=== PATIENT | male | born 1955 | race Caucasian/White ===

== ENCOUNTER 2016-07-02 10:23 | Inpatient (IN) | payer OTHER ==
--- NOTE | ~2016-07-02 | PN ---
Unit #: [id number] #: [id number] Patient: SHARON CASTANEDA [id number] [facility] [address] [place] [address] [id number] MR#: [id number] NAME: SHARON CASTANEDA ROOM: 71 Age: 61 Sex: M Admission Date: 07/02/2016 : 1955 Attending Physician: Parmjit Conroy M.D. Admitting Physician: Parmjit Conroy M.D. Primary Care Physician: Generic Doctor Not In System [facility] PROGRESS NOTES DATE 07/06/2016 DISCUSSION Mr. Castaneda is a 62-year-old, white male who was seen today and chart was reviewed and case was discussed with the staff. He has been anxious, withdrawn though has not shown any agitation, irritability or behavioral problems and has been cooperative with treatment recommendations. He has been taking the medication and tolerating them fairly well with no reported side effects. MENTAL STATUS EXAM An elderly white male who was casually dressed with fair personal hygiene, appears to be in no acute distress or discomfort. He was awake and alert on interaction with intact orientation. His mood was anxious with congruent affect. His speech was slow and goal directed. He denies any suicidal or homicidal ideation. Also, denies any auditory or visual hallucinations. His insight and judgement remains slightly impaired. TREATMENT PLAN 1. We will continue him on his current treatment protocol. We will monitor his response and make further adjustments as needed. 2. We will continue to follow up. Dictated by... Richardson Nolan/chuy TD: 07/07/2016 21:05 JOB #: [id number] Unit #: [id number] #: [id number] Patient: SHARON CASTANEDA PROGRESS NOTES Page 1 of 1 X Parmjit Conroy MD X PROGRESS NOTE
--- NOTE | ~2016-07-02 | DS ---
Unit #: [id number] #: [id number] [facility]: [facility] [id number] [facility] [address] [place] [address] [id number] MR#: [id number] NAME: SHARON CASTANEDA ROOM: [facility] Age: 61 Sex: M Admission Date: 07/02/2016 : 1955 Discharge Date: 07/07/2016 Attending Physician: Parmjit Conroy M.D. Primary Care Physician: Generic Doctor Not In System DISCHARGE SUMMARY IDENTIFYING DATA Mr. Castaneda is a 61-year-old white male, who is a resident of [place], [place], and was self-referred to the hospital on a voluntary basis. DISCHARGE DIAGNOSES Psychiatric: Major depressive disorder, recurrent, moderate, without psychotic features; alcohol dependence, moderate and acute withdrawals; cocaine dependence, moderate; cannabis dependence, moderate. Medical: Chronic obstructive pulmonary disease, arrhythmias. Stressors: Moderate psychosocial stressors. HISTORY OF PRESENT ILLNESS Please see initial psychiatric evaluation for details. PAST PSYCHIATRIC HISTORY Please see initial psychiatric evaluation for details. PAST MEDICAL HISTORY Please see initial psychiatric evaluation for details. HOSPITAL COURSE The patient was admitted to the adult chemical dependency unit at [facility] jabari Kowalski and was oriented to the hospital environment. Routine p.r.n. medications were initiated, and he was started back on his home medications and medications were adjusted and he was closely monitored. He was taking the medications regularly and was tolerating them fairly well and was able to come out of the detox without any complications and was willing to continue treatment on an outpatient basis and as such, it was decided that he will be kept on his current medications and will be discharged home and will continue treatment on an outpatient basis. DISCHARGE MEDICATIONS Remeron 15 mg at bedtime for depression. DISCHARGE CONDITION Stable. PROGNOSIS Fair. Dictated by... Unit #: [id number] #: [id number] Patient: SHARON CASTANEDA Parmjit Conroy M.D. IAA/modl TD: 07/07/2016 06:46 JOB #: [id number] DISCHARGE SUMMARY Page 1 of 1 X Parmjit Conroy MD X DISCHARGE SUMMARY
--- NOTE | ~2016-07-02 | PN ---
Unit #: [id number] #: [id number] Patient: SHARON CASTANEDA [id number] [facility] [address] [place] [address] [id number] I MR#: [id number] NAME: SHARON CASTANEDA ROOM: 71 Age: 61 Sex: M Admission Date: 07/02/2016 : 1955 Attending Physician: Parmjit Conroy M.D. Admitting Physician: Parmjit Conroy M.D. Primary Care Physician: Generic Doctor Not In System [facility] PROGRESS NOTES DATE 07/05/2016 DISCUSSION Mr. Castaneda is a 61-year-old, white male with substance abuse and mood disorder who was seen today and chart was reviewed and case was discussed with the staff. He has been anxious, withdrawn and rather seclusive to himself. Meanwhile, he has been cooperative with treatment recommendations as he has taking medications and tolerating them fairly well with no reported side effects. MENTAL STATUS EXAM An elderly white male who was casually dressed with fair personal hygiene, appears to be in no acute distress or discomfort. He was awake and alert on interaction with intact orientation. His mood was anxious with congruent affect. His speech was slow and restricted in content. His thought process was disorganized with some looseness of associations. His insight and judgement remains significantly impaired. TREATMENT PLAN 1. We will continue him on his current medications and treatment protocol. We will monitor his response to the medication and make further adjustments as needed. 2. We will continue to follow up. Dictated by... Richardson Nolan/chuy TD: 07/06/2016 23:37 JOB #: [id number] Unit #: [id number] #: [id number] Patient: SHARON CASTANEDA PROGRESS NOTES Page 1 of 1 X Parmjit Conroy MD PROGRESS NOTE
--- NOTE | ~2016-07-02 | PN ---
Unit #: [id number] #: [id number] Patient: SHARON CASTANEDA [id number] [facility] [address] [place] [address] [id number] I MR#: [id number] NAME: SHARON CASTANEDA ROOM: 71 Age: 61 Sex: M Admission Date: 07/02/2016 : 1955 Attending Physician: Parmjit Conroy M.D. Admitting Physician: Parmjit Conroy M.D. Primary Care Physician: Manny Doctor Not In System [facility] PROGRESS NOTES DATE OF SERVICE 07/03/2016 DISCUSSION Mr. Castaneda is a 61-year-old white male with substance abuse and mood disorder who was seen today. Chart was reviewed and case was discussed with the staff. He has been anxious, withdrawn, unkempt, disheveled, and rather seclusive to himself. Meanwhile, he has been cooperative with the treatment recommendations and has been taking the medications and tolerating them fairly well with no reported side effects. MENTAL STATUS EXAMINATION Middle-aged white male who is casually dressed with fair personal hygiene, appears to be in no acute distress or discomfort. He was awake and alert on interaction with intact orientation. His mood is anxious with congruent affect. Speech is slow and goal-directed. He denies any suicidal or homicidal ideations. His insight and judgment remain slightly impaired. TREATMENT PLAN 1. We will continue him on his current medications and treatment protocol. We will monitor his response to the medications and make further adjustments as needed. 2. We will continue to follow up. Dictated by... Richardson Nolan/delfin TD: 07/04/2016 10:36 JOB #: [id number] Unit #: [id number] #: [id number] Patient: SHARON CASTANEDA PROGRESS NOTES Page 1 of 1 X Parmjit Conroy MD X PROGRESS NOTE
--- NOTE | ~2016-07-02 | PN ---
Unit #: [id number] #: [id number] Patient: SHARON CASTANEDA [id number] [facility] [address] [place] [address] [id number] I MR#: [id number] NAME: SHARON CASTANEDA ROOM: 71 Age: 61 Sex: M Admission Date: 07/02/2016 : 1955 Attending Physician: Parmjit Conroy M.D. Admitting Physician: Parmjit Conroy M.D. Primary Care Physician: Generic Doctor Not In System [facility] PROGRESS NOTES DATE 07/03/2016 DISCUSSION Mr. Castaneda is a 61-year-old white male who was seen today and chart was reviewed and case was discussed with the staff. He has been anxious, withdrawn, rather seclusive to himself. Meanwhile, he has been cooperative with treatment recommendations and has been taking medications and tolerating them fairly well with no reported side effects. MENTAL STATUS EXAMINATION An elderly white male who was casually dressed with fair personal hygiene and appears to be in no acute distress or discomfort. He was awake and alert on interaction with intact orientation. His mood was anxious with congruent affect. His speech is slow and goal-directed. He denies any suicidal or homicidal ideations and also denies any auditory or visual hallucinations. His insight and judgement remains slightly impaired. TREATMENT PLAN 1. Will continue him on his current medications and treatment protocol and will monitor his response to the medications and make further adjustments as needed. 2. Will continue to follow up. Dictated by... Richardson Nolan/sheri TD: 07/03/2016 15:47 JOB #: [id number] Unit #: [id number] #: [id number] Patient: SHARON CASTANEDA PROGRESS NOTES Page 1 of 1 X Parmjit Conroy MD PROGRESS NOTE
--- NOTE | ~2016-07-02 | PA ---
Unit #: [id number] #: [id number] Patient: SHARON CASTANEDA [id number] [facility] [address] [place] [address] [id number] I MR#: [id number] NAME: SHARON CASTANEDA ROOM: P171 Age: 61 Sex: M Admission Date: 07/02/2016 : 1955 Date of Assessment: 07/02/2016 Attending Physician: Parmjit Conroy M.D. Admitting Physician: Parmjit Conroy M.D. PSYCHIATRIC ASSESSMENT DATE OF SERVICE 07/02/2016. IDENTIFYING DATA Mr. Castaneda is a 61-year-old, , white male, who is a resident of [place], [place], was self-referred to the hospital on a voluntary basis and was dropped off by one of his friends. CHIEF COMPLAINT "I don't feel like I've a purpose." HISTORY OF PRESENT ILLNESS Mr. Castaneda is a 61-year-old white male with a history of mood disorder, who was brought to the hospital. Upon presentation, he reports increasing depression, and does not feel like "he has a purpose anymore." "I'm still grieving over mother, I was thinking of jumping from the bridge a few days ago, I've been on a 5-day drug and alcohol high and I got to the point of wanting to end my life. So, I don't think of what I have done, drinking alcohol about 12 pack tall cans daily and last use was Thursday, and I've been sitting at the [facility] for 12 hours to try to get into rehab in [place], [place] and they were full, so I returned, I chose this place to be near to my mom's grave site, I have smoked crack cocaine in 5 days, last use was Thursday, I'm smoking marijuana daily, one joint, last was on Thursday and no other drug use. I've been feeling suicidal all my life. I've been feeling really bad 5 days ago and I've attempted to cut my wrist, cut my arm, my skin off my fingers to the bones and stem mounter knife. I have burned myself, my last a couple of years ago and currently I'm thinking of overdosing on crack and I've access to it. I'm currently feeling suicidal today and currently he was unable to contract for safety and as such, recommendation for inpatient level of care for safety and stabilization and medical detox was made. SUBSTANCE ABUSE HISTORY The patient reports extensive history of substance abuse and dependence including alcohol, cannabis, cocaine, acid, amphetamines, and it appears that currently alcohol and cocaine and cannabis have been his drug of choice. PAST PSYCHIATRIC HISTORY The patient has had history of multiple inpatient chemical dependency psychiatric treatment in the past and currently is not active in any treatment program, is not seeing a psychiatrist, and is not taking any psychotropic medications. Unit #: [id number] #: [id number] Patient: SHARON CASTANEDA PAST MEDICAL HISTORY Arrhythmia, COPD. ALLERGIES Codeine. PERSONAL AND SOCIAL HISTORY A 61-year-old white male, who reports that he is single, unemployed, and essentially homeless and has poor social support system. MENTAL STATUS EXAMINATION An elderly white male, who was casually dressed with marginal personal hygiene, appears to be in no acute distress or discomfort. He was awake and alert on interaction with intact orientation to time, place, and person. His mood was anxious and depressed with a congruent affect. His speech was slow and restricted in content. His thought processes were disorganized with some looseness of associations and flight of ideas and suicidal ideations. His insight and judgment remain significantly impaired. DIAGNOSTIC IMPRESSION Psychiatric: Major depressive disorder, recurrent, moderate, without psychotic features; alcohol dependence, moderate and acute withdrawals; cocaine dependence, moderate; cannabis dependence, moderate. Medical: Chronic obstructive pulmonary disease, arrhythmias. Stressors: Moderate psychosocial stressors. TREATMENT PLAN 1. The patient has presented with a history of mood disorder and substance abuse and dependence and has been decompensating and will need inpatient hospitalization for safety and stabilization and medical detox. We will start him on detox protocol. We will adjust his medications and monitor his response. 2. Supportive therapy was provided to the patient. 3. Safe, structured, and nourishing environment will be provided. ESTIMATED LENGTH OF STAY 4 to 5 days. ABILITY TO HELP SELF Limited. WILLINGNESS TO HELP SELF The patient appears to be willing to help self. STRENGTHS 1. Communicative. 2. Cooperative. PROBLEMS 1. Chronic dysphoric symptoms. 2. Chronic chemical dependency. 3. Poor social support system. DISCHARGE CRITERIA Unit #: [id number] #: [id number] Patient: SHARON CASTANEDA This will be contingent upon the patient's ability to go through detox without having any significant withdrawal symptoms as well as his ability to stay safe to himself, particularly after discharge from the hospital. Dictated by... Richardson Nolan/hal TD: 07/03/2016 07:24 JOB #: [id number] PSYCHIATRIC ASSESSMENT Page 1 of 1 X Parmjit Conroy MD PSYCHIATRIC ASSESSMENT
--- NOTE | ~2016-07-02 | HP ---
Unit #: [id number] #: [id number] Patient: SHARON CASTANEDA [id number] [facility] [address] [place] [address] [id number] I MR#: [id number] NAME: SHARON CASTANEDA ROOM: P171 Age: 61 Sex: M Admission Date: 07/02/2016 : 1955 Attending Physician: Parmjit Conroy M.D. Admitting Physician: Parmjit Conroy M.D. Primary Care Physician: Generic Doctor Not In System HISTORY AND PHYSICAL HISTORY OF PRESENT ILLNESS Sharon is a 61 year old admitted to [facility] because of his polysubstance abuse which includes alcohol and crack cocaine. PAST MEDICAL HISTORY 1. Long history of alcohol abuse. 2. History of illicit substance abuse to include crack cocaine. PAST SURGICAL HISTORY Right arm. ALLERGIES No known drug allergies. SOCIAL HISTORY Smokes 1/2 pack per day. Drinks 12 beers on a daily basis. Admits to regular use of crack cocaine. FAMILY HISTORY Medically noncontributory. REVIEW OF SYSTEMS CONSTITUTIONAL: No fever or chills. HEENT: Denies any sore throat, ear pain or runny nose. CARDIOVASCULAR: Denies chest pain, irregular heart rhythm or palpitations. CHEST: Denies shortness of breath or cough. No hemoptysis. GASTROINTESTINAL: Denies nausea, vomiting, diarrhea or chronic constipation. ENDOCRINE: Denies history of increased thirst or urination. No recent significant weight loss or gain. GENITOURINARY: Denies dysuria, frequency, or hematuria. SKIN: Denies any rashes. HEMATOLOGIC: Denies history of increased bleeding or bruising. MUSCULOSKELETAL: Denies any hot, swollen joints. No generalized muscle pain. NEUROLOGIC: Denies problems with vision or speech. No frequent, severe headaches. No numbness, tingling or weakness in any extremities. Denies loss of bladder or bowel control. CURRENT MEDICATIONS Detox protocol. PHYSICAL EXAMINATION Unit #: [id number] #: [id number] Patient: SHARON CASTANEDA GENERAL: Alert, well-nourished, in no apparent distress. VITAL SIGNS: Blood pressure 132/88, heart rate 74, respirations 16, temperature 98.6. WEIGHT: 205. HEIGHT: 6 feet 2 inches. SKIN: Warm and dry without rash or lesion. HEENT: Normocephalic. TMs not viewed. Oral and nasal passages clear. Conjunctivae clear. PERRLA. EOMs intact. NECK: Supple without lymphadenopathy or thyromegaly. HEART: Regular rate and rhythm without murmur. LUNGS: Clear. ABDOMEN: Soft, nontender. : Not done. EXTREMITIES: No evidence of cyanosis, clubbing or edema. Moves all without focal deficit. NEUROLOGICAL: Grossly within normal limits. Cranial Nerves: II: Visual kraus are intact. III, IV AND : Extraocular movements are intact. Pupils are equal, round and reactive to light. V: Facial sensation is grossly normal. VII: Facial movements and expression are normal. VIII: Auditory acuity grossly intact. IX, X: Uvula is midline. Phonation is normal. XI: Patient shrugs shoulders and turns head normally. XII: Tongue protrudes in the midline. Sensory and Motor Function: Sensory and motor sensation is grossly normal. Motor: moves all extremities well. Coordination: Gait is normal. Deep Tendon Reflexes: Intact. IMPRESSION Psychiatric admission. RECOMMENDATIONS PSYCHIATRIC: Per psychiatrist. MEDICAL: See no contraindications to participate in facility's activities. MEDICAL PROGNOSIS Good. MEDICAL CONDITION Stable. Dictated by... Kathy Ray P.A.-C. for Richardson Pereira/sheri TD: 07/02/2016 20:32 JOB #: [id number] Unit #: [id number] #: [id number] Patient: SHARON CASTANEDA HISTORY AND PHYSICAL Page 1 of 1 X Kathy Ray HISTORY AND PHYSICAL
[2016-07-03 09:47] LABS: BASOPHIL% 0.6 % (0-2.5); EOSINOPHIL# 0.4 X10e3 (0-0.7); EOSINOPHIL% 5.4 % (0.0-7.0); HEMATOCRIT 42.2 % (38.0-50.0); HEMOGLOBIN 13.8 gm/dL (13.0-16.0); LYMPHOCYTE# 2.4 X10e3 (1.0-3.5); LYMPHOCYTE% 35.6 % (17.0-45.0); MEAN CELL VOLUME 93.7 FL (83-96); MEAN CORPUSCULAR HEMOGLOBIN 30.6 PG (28-34); MEAN CORPUSCULAR HGB CONC 32.6 g/dL (30-36); MEAN PLATELET VOLUME 8.2 FL (6.5-11.5); MONOCYTE# 0.4 X10e3 (0-1.0); MONOCYTE% 6.5 % (3.0-12.0); NEUTROPHIL# 3.5 X10e3 (1.5-7.1); NEUTROPHIL% 51.9 % (40-75); PLATELET COUNT 300 X10e3 (140-420); RED CELL DISTRIBUTION WIDTH 13.8 % (11.0-15.5); WHITE BLOOD COUNT 6.8 X10e3 (4.0-10.5)
[2016-07-03 10:06] LABS: URINE APPEARANCE CLEAR; URINE BLOOD NEG (NEG); URINE COLOR DK YELLOW; URINE GLUCOSE 250 MG/DL (NEG); URINE KETONE TRACE (NEG); URINE LEUKOCYTE ESTERASE TRACE (NEG); URINE NITRATE NEG (NEG); URINE PH 5.5 (5-8); URINE PROTEIN TRACE (NEG); URINE SPECIFIC GRAVITY 1.039 (1.003-1.035)
[2016-07-03 10:10] LABS: URINE BACTERIA AUWI NEG (NEGATIVE); URINE SQUAMOUS EPITHELIAL CELL OCC /[HPF]
[2016-07-03 10:13] LABS: THYROID STIMULATING HORMONE 0.28 uIU/ml (0.34-5.60)
[2016-07-03 10:20] LABS: FREE THYROXIN (T4) 0.78 ng/dL (0.58-1.64)
[2016-07-03 10:24] LABS: ALBUMIN SERUM 3.4 g/dL (3.5-5.0); BILIRUBIN,TOTAL 0.3 mg/dL (0.2-2.0); BUN/CREATININE RATIO 16.66; CALCIUM SERUM 9.1 mg/dL (8.4-10.2); CREATININE SERUM 0.9 mg/dL (0.6-1.4); DIFF IND NO; GLOM FILT RATE Estimated 91.2 mL/min (>60); POTASSIUM 4.3 mmol/L (3.5-5.1); PROTEIN TOTAL SERUM 5.8 g/dL (6.0-8.3)
[2016-07-03 10:33] LABS: AMPHETAMINE NEG (NEG); BARBITURATES NEG (NEG); BENZODIAZEPINES NEG (NEG); COCAINE POS (NEG); MARIJUANA NEG (NEG); OPIATES NEG (NEG); TRICYCLIC ANTIDEPRESSANTS NEG (NEG); U METHADONE NEG (NEG); URINE BILIRUBIN NEG (NEG); URINE CRYSTALS CALCIUM OXALATE /[HPF]; URINE MUCUS PRESENT
[2016-07-03 10:34] LABS: URBCS1 AUWI 0-2 /[HPF] (0-2)
[2016-07-03 10:35] LABS: UWBCS1 AUWI 0-2 (0-5)
== END 2016-07-07 10:30 | disposition home or self-care (01) | DRG 885 ==
LOC: P1E 10:23
PROVIDERS: Psychiatry & Neurology Psychiatry
PROC: HZ2ZZZZ Detoxification Services for Substance Abuse Treatment (ICD-10-PCS; principal; 2016-07-02)
DX: F33.1 Major depressive disorder, recurrent, moderate (principal); F14.20 Cocaine dependence, uncomplicated; F10.239 Alcohol dependence with withdrawal, unspecified; J44.9 Chronic obstructive pulmonary disease, unspecified
CPT/HCPCS: 80053; 80307; 81003; 84439; 84443; 85025; 86592